=== PATIENT | male | born 2000 | race Caucasian/White ===

== ENCOUNTER 2019-11-14 21:01 | Emergency (ER) | payer BC ==
[2019-11-14] MEDS ORDERED: SINGULAIR PO (21:31)
[2019-11-14] MEDS ORDERED: WELLBUTRIN XL150 M2 PO (21:32)
[2019-11-14] MEDS ORDERED: LEXAPRO20 M1 PO (21:32)
[2019-11-14] MEDS ORDERED: ADDERALL 10 MG10 MG PO (21:32)
[2019-11-14 21:56] LABS: BASO # 0.1 (0.02-0.10); EOS # 0.6 (0.04-0.40); EOS % 6.7 % (0.0-4.0); HEMATOCRIT 46.4 % (36.0-47.0); HEMOGLOBIN 15.3 g/dL (12.5-16.1); LYMPH# 2.7 (1.50-4.00); MEAN CELL VOLUME 87 fl (78-95); MEAN CORPUSCULAR HEMOGLOBIN 29 pg (26-32); MEAN CORPUSCULAR HGB CONC 33 g/dL (33-37); MEAN PLATELET VOLUME 10.7 fl (7.4-10.4); MONO # 0.7 (0.20-0.80); NEU # 4.8 (1.40-6.50); PLATELET COUNT 214 K/mm3 (130-400); RED BLOOD COUNT 5.32 M/mm3 (4.20-5.60); RED CELL DISTRIBUTION WIDTH 12.6 % (11.5-14.5); WHITE BLOOD COUNT 8.8 K/mm3 (4.8-10.8)
[2019-11-14 22:07] LABS: ALBUMIN 4.3 g/dL (3.5-5.0); POTASSIUM 3.9 mmol/L (3.5-5.1)
[2019-11-14 22:08] LABS: CALCIUM 9.2 mg/dL (8.3-10.5)
[2019-11-14 22:09] LABS: TOTAL PROTEIN 7.3 g/dL (6.4-8.3)
[2019-11-14 22:11] LABS: TOTAL BILIRUBIN 0.2 mg/dL (0.2-1.2)
[2019-11-14] MEDS ORDERED: PREDNISONE20 MG PO (23:29)
[2019-11-14 23:38] VITALS: BP 126/86
== END 2019-11-14 23:38 | disposition home or self-care (01) ==
LOC: ED 21:01
PROVIDERS: Nurse Practitioner
DX: J45.901 Unspecified asthma with (acute) exacerbation (principal); F90.9 Attention-deficit hyperactivity disorder, unspecified type; F41.9 Anxiety disorder, unspecified; F17.210 Nicotine dependence, cigarettes, uncomplicated; Z79.52 Long term (current) use of systemic steroids
CPT/HCPCS: J2930